=== PATIENT | female | born 1970 | race Caucasian/White ===

== ENCOUNTER 2017-01-02 14:45 | Emergency (ER) | payer OTHER ==
--- NOTE | 2017-01-02 15:37 | ERPHSYRPT ---
<PAM CHEATHAM J - Last Filed: 01/02/17 15:43> - History of Present Illness Time Seen by Provider: 01/02/17 15:40 Patient Subjective Stated Complaint: pt has redness to face and arms since yesterday with itching, unsure of cause,she has new soap, detergent. took benadryl and calamine lotion Triage Nursing Assessment: pt alert,resp easy, has reddnesn to face and arms. no sob. Prior Chest Pain/Cardiac Workup: no prior chest pain Nitro Today/Relief: 0.4 mg x 1, provided by EMS, mild relief Aspirin Treatment Today: 81 mg x 2, provided by EMS Allergies/Adverse Reactions: hydromorphone HCl [From Dilaudid] Allergy (Intermediate, Verified 01/02/17 15:02 ) ketorolac tromethamine [From Toradol] Allergy (Intermediate, Verified 01/02/17 15:02) naproxen Allergy (Intermediate, Verified 01/02/17 15:02) nitroglycerin [From Nitro-Bid] Allergy (Intermediate, Verified 01/02/17 15:02) promethazine HCl [From Phenergan] Allergy (Intermediate, Verified 01/02/17 15:02 ) propoxyphene napsylate [From Darvocet-N 100] Allergy (Intermediate, Verified 15:02) tramadol HCl [From Ultram] Allergy (Intermediate, Verified 01/02/17 15:02) cefaclor [From Ceclor] Allergy (Mild, Verified 01/02/17 15:02) ampicillin [Ampicillin] Allergy (Unknown, Verified 01/02/17 15:02) Cephalosporins Allergy (Unknown, Verified 01/02/17 15:02) ketorolac Allergy (Unknown, Verified 01/02/17 15:02) levofloxacin [Levofloxacin] Allergy (Unknown, Verified 01/02/17 15:02) morphine Allergy (Unknown, Verified 01/02/17 15:02) niacin [Niacin] Allergy (Unknown, Verified 01/02/17 15:02) Opioids - Morphine Analogues [Opioids-Morphine & Related] Allergy (Unknown, Verified 01/02/17 15:02) Opioids-Meperidine and Related [Opioids-Meperidine & Related] Allergy (Unknown, Verified 01/02/17 15:02) Penicillins Allergy (Unknown, Verified 01/02/17 15:02) propoxyphene Allergy (Unknown, Verified 01/02/17 15:02) simvastatin Allergy (Unknown, Verified 01/02/17 15:02) tramadol Allergy (Unknown, Verified 01/02/17 15:02) bees Allergy (Severe, Uncoded 01/02/17 15:02) Home Medications: Albuterol Sulfate [Albuterol Sulfate Hfa] 2 puff IH TID 09/06/14 [History] Albuterol/Ipratropium 3ml Neb* [DUONEB 0.5-3 MG/3 ml Neb] 3 ml IH Q4HPRN PRN 09/06/14 [History] Aripiprazole [Abilify] 5 mg PO DAILY 09/06/14 [History] Aspirin 81 mg PO DAILY 09/06/14 [History] Calcium Carbonate/Vitamin D3 [Calcium 600 + Vit D Tablet] 1 each PO DAILY [History] Metoprolol Tartrate 25 mg [Lopressor 25MG Tab] 25 mg DAILY 01/02/17 [ History] Hx Tetanus, Diphtheria Vaccination/Date Given: No Hx Influenza Vaccination/Date Given: No Hx Pneumococcal Vaccination/Date Given: No - Past Medical History Pertinent Past Medical History: Yes Neurological History: Migraines ENT History: No Pertinent History Cardiac History: Congestive Heart Failure, Hypertension, Myocardial Infarction ( [place]) Respiratory History: Asthma Endocrine Medical History: Hypothyroidism Musculoskeletal History: Osteoarthritis GI Medical History: GERD History: No Pertinent History Psycho-Social History: Anxiety, Bipolar, Depression Female Reproductive Disorders: Endometriosis, Other Other Medical History: PT. HAS HX [place] X 3 AND NOW IS IN CHF. PT. REPORTS SHE HAS LOST > 194 LBS AND NOW IS NOT DIABETIC. - Past Surgical History Past Surgical History: Yes Neuro Surgical History: No Pertinent History Cardiac: Cardiac Catheterization Respiratory: No Pertinent History Gastrointestinal: Cholecystectomy, Exploratory Laparoscopy, Hernia Repair Genitourinary: No Pertinent History Musculoskeletal: No Pertinent History Female Surgical History: Section, Hysterectomy Other Surgical History: hernia repair x 2 , x2 - Social History Smoking Status: Never smoker Exposure to second hand smoke: Yes Drug Use: none Patient Lives Alone: No - Female History Hx Last Menstrual Period: hyster Hx Now: No - Nursing Vital Signs Temperature: 98.3 F Temperature Source: Oral Pulse Rate: 59 Respiratory Rate: 18 Pain Intensity: 0 - Physical Exam SpO2: 98 Ordered Tests: Medication Summary Discontinued Medications Generic Name Dose Route Start Last Admin Trade Name Kay PRN Reason Stop Dose Admin Diphenhydramine HCl 50 mg 01/02/17 15:44 01/02/17 15:49 Benadryl 50 Mg/Ml IM 01/02/17 15:45 50 mg STAT ONE Administration Diphenhydramine HCl Confirm 01/02/17 15:48 Benadryl 50 Mg/Ml Administered 01/02/17 15:49 Dose 50 mg .ROUTE .STK-MED ONE Methylprednisolone Sodium Succinate 125 mg 01/02/17 15:44 01/02/17 15:49 Solu-Medrol 125 Mg IM 01/02/17 15:45 125 mg STAT ONE Administration Methylprednisolone Sodium Succinate Confirm 01/02/17 15:48 Solu-Medrol 125 Mg Administered 01/02/17 15:49 Dose 125 mg .ROUTE .STK-MED ONE - Progress Progress Note: 01/02/17 15:43 This note was made in incorrect chart. - Departure Clinical Impression: Contact dermatitis Qualifiers: Contact dermatitis type: unspecified Contact dermatitis trigger: detergents Qualified Code(s): L24.0 - Irritant contact dermatitis due to detergents Condition: Fair Referrals: SHAWNEE RODGERS [Primary Care Provider] - Additional Instructions: so we don't need to previously away until will need to wean drip or anybody. He states the pain. When vomiting. The lowReturn home. Benadryl 25-50 mg orally every 6 hours as needed for 2-3 days. Tapering dose of prednisone as directed. Stop exposure to detergent and or dryer sheets. Follow-up with your family Dr. symptoms are worse, no better in 48 hours, or persist longer than 72 hours. Return for acute distress or for severe symptoms. <MIRTHA FARLEY - Last Filed: 01/02/17 16:11> - History of Present Illness Historian: patient Physician History: This is a 46-year-old white female with history of hypothyroidism, asthma, congestive heart failure, high blood pressure, myocardial infarction, osteoarthritis, congestive heart failure. She arrives with complaint of a erythematous. Rash to her face and bilateral forearms symptoms since yesterday. Patient feels like she is exposed to either new detergent or dryer sheets. She is not having shortness of breath no chest pain. She states she's been taking Benadryl 25 mg orally every 4 hours. Last Benadryl was taken at 11:00 today. Past medical history includes hypothyroidism, asthma, congestive heart failure, high blood pressure, myocardial infarction, osteoarthritis, Past surgical history includes cardiac catheter, cholecystectomy, exploratory laparotomy, hernia repair, , hysterectomy, Social history patient denies tobacco alcohol or illicit drug use Timing/Duration: yesterday Activities at Onset: none Quality: other (itching) Location: other (no chest pain) Severity of Pain-Max: none Severity of Pain-Current: none Associated Symptoms: rash (pleuritic rash to face and bilateral forearms), No nausea, No vomiting, No palpitations, No heartburn, No abdominal pain, No shortness of breath, No cough, No hurts to breathe, No diaphoresis, No chills, No fever, No fatigue, No weakness, No swelling/lump in chest, No syncope Prior Chest Pain/Cardiac Workup: cardiac cath, heart attack Nitro Today/Relief: no nitro taken today Aspirin Treatment Today: 81 mg x 1 - Review of Systems Constitutional: No Fever, No Chills Eyes: No Symptoms Ears, Nose, & Throat: No Symptoms Respiratory: No Cough, No Dyspnea Cardiac: No Chest Pain, No Edema, No Syncope Abdominal/Gastrointestinal: No Abdominal Pain, No Nausea, No Vomiting, No Diarrhea Genitourinary Symptoms: No Dysuria Musculoskeletal: No Back Pain, No Neck Pain Skin: Rash (puritic rash erythematousanterior face and forearms) Neurological: No Dizziness, No Focal Weakness, No Sensory Changes Psychological: No Symptoms Endocrine: No Symptoms All Other Systems: Reviewed and Negative - Past Medical History Neurological History: Migraines Cardiac History: Congestive Heart Failure, Hypertension, Myocardial Infarction ( [place]) Respiratory History: Asthma Endocrine Medical History: Hypothyroidism Musculoskeletal History: Osteoarthritis GI Medical History: GERD Psycho-Social History: Anxiety, Bipolar, Depression Female Reproductive Disorders: Endometriosis - Physical Exam General Appearance: other (well-developed obese white female in no apparent distress) Eye Exam: PERRL/EOMI, eyes nml inspection Ears, Nose, Throat Exam: normal ENT inspection, moist mucous membranes Neck Exam: normal inspection, non-tender, supple, full range of motion Respiratory Exam: normal breath sounds, lungs clear, No respiratory distress Cardiovascular Exam: regular rate/rhythm, normal heart sounds Gastrointestinal/Abdomen Exam: soft, No tenderness, No mass Back Exam: normal inspection, No CVA tenderness, No vertebral tenderness Extremity Exam: normal inspection, normal range of motion Neurologic Exam: alert, oriented x 3, cooperative, normal mood/affect, sensation nml, No motor deficits Skin Exam: other (skin on face is mild is erythematous, not hot slight erythematous areas on bilateral forearms scattered) SpO2 Interpretation: normal (98%) - Course Nursing assessment & vital signs reviewed: Yes - Progress Progress: improved Air Movement: fair Progress Note: 01/02/17 15:53 This is a 46-year-old white female with history of hypothyroidism, asthma, congestive heart failure, high blood pressure, myocardial infarction, osteoarthritis, myocardial infarction She complains of an erythematous pruritic rash on her face and arms symptoms since yesterday she states that she believes that she was exposed to a new detergent and/or dryer sheets she has been taking Benadryl 25 mg orally every 6 hours without relief. Patient does not appear to be in acute distress or lungs are clear vitals are stable. Will go ahead and give patient Solu-Medrol 125 mg IM Benadryl 50 mg IM discharge patient with Benadryl 25-50 mg orally every 6 hours tapering dose of prednisone. Patient is to discontinue her new detergent and/or dryer sheet. She is to recheck return for acute distress or for severe symptoms she is follow -up with her family doctor symptoms are no better in 24-48 hours worse or persist longer than 72 hours. . - Departure Time of Disposition: 15:55 Departure Disposition: Home Critical Care Time: No
[2017-01-02] MEDS ORDERED: solu-MEDROL 125 MG IM ONE (15:44)
[2017-01-02] MEDS ORDERED: BENADRYL 50 MG/ML IM ONE (15:44)
[2017-01-02] MEDS ORDERED: BENADRYL 50 MG/ML ONE (15:48)
[2017-01-02] MEDS ORDERED: solu-MEDROL 125 MG ONE (15:48)
[2017-01-02 16:16] VITALS: BP 102/35; PULSE 57; O2SAT 97
== END 2017-01-02 16:16 | disposition home or self-care (01) ==
LOC: ED 14:45
DX: L24.0 Irritant contact dermatitis due to detergents (principal); I50.9 Heart failure, unspecified; I10 Essential (primary) hypertension; E03.9 Hypothyroidism, unspecified
CPT/HCPCS: 96372; 96376; 99283; 99284; J1200; J2930

== ENCOUNTER 2017-01-31 11:59 | Emergency (ER) | payer OTHER ==
[2017-01-31] MEDS ORDERED: TYLENOL 325 MG PO ONE (12:17)
[2017-01-31] MEDS ORDERED: PROVENTIL 2.5 MG/3 ML NEB IH ONE ×2 (12:17→12:39)
[2017-01-31] MEDS ORDERED: TYLENOL 325 MG ONE (12:20)
--- NOTE | 2017-01-31 12:27 | ERPHSYRPT ---
- History of Present Illness Time Seen by Provider: 01/31/17 12:10 Source: patient Patient Subjective Stated Complaint: cough and chest congestion for one week. seen by family md and was given mucinex. states is not getting any better. Triage Nursing Assessment: ambulated to room per self. skin w/d, color normal, resp nonlabored. occasional dry cough noted. lung sounds clear. Physician History: CC: cough Hx: 46 y/o patient with hx of heart disease. She is on ventolin inhalers. She has chest cold, cough, congestion for a few days. No fever or chills. She tried to get mucinex at the store but could not afford it. She is taking a cough syrup. Allergies/Adverse Reactions: hydromorphone HCl [From Dilaudid] Allergy (Intermediate, Verified 01/31/17 12:49 ) ketorolac tromethamine [From Toradol] Allergy (Intermediate, Verified 01/31/17 12:49) naproxen Allergy (Intermediate, Verified 01/31/17 12:49) nitroglycerin [From Nitro-Bid] Allergy (Intermediate, Verified 01/31/17 12:49) promethazine HCl [From Phenergan] Allergy (Intermediate, Verified 01/31/17 12:49 ) propoxyphene napsylate [From Darvocet-N 100] Allergy (Intermediate, Verified 12:49) tramadol HCl [From Ultram] Allergy (Intermediate, Verified 01/31/17 12:49) cefaclor [From Ceclor] Allergy (Mild, Verified 01/31/17 12:49) ampicillin [Ampicillin] Allergy (Unknown, Verified 01/31/17 12:49) Cephalosporins Allergy (Unknown, Verified 01/31/17 12:49) ketorolac Allergy (Unknown, Verified 01/31/17 12:49) levofloxacin [Levofloxacin] Allergy (Unknown, Verified 01/31/17 12:49) morphine Allergy (Unknown, Verified 01/31/17 12:49) niacin [Niacin] Allergy (Unknown, Verified 01/31/17 12:49) Opioids - Morphine Analogues [Opioids-Morphine & Related] Allergy (Unknown, Verified 01/31/17 12:49) Opioids-Meperidine and Related [Opioids-Meperidine & Related] Allergy (Unknown, Verified 01/31/17 12:49) Penicillins Allergy (Unknown, Verified 01/31/17 12:49) propoxyphene Allergy (Unknown, Verified 01/31/17 12:49) simvastatin Allergy (Unknown, Verified 01/31/17 12:49) tramadol Allergy (Unknown, Verified 01/31/17 12:49) bees Allergy (Severe, Uncoded 01/02/17 15:02) Home Medications: Albuterol Sulfate [Albuterol Sulfate Hfa] 2 puff IH TID 09/06/14 [History] Albuterol/Ipratropium 3ml Neb* [DUONEB 0.5-3 MG/3 ml Neb] 3 ml IH Q4HPRN PRN 09/06/14 [History] Aripiprazole [Abilify] 5 mg PO DAILY 09/06/14 [History] Aspirin 81 mg PO DAILY 09/06/14 [History] Calcium Carbonate/Vitamin D3 [Calcium 600 + Vit D Tablet] 1 each PO DAILY [History] Metoprolol Tartrate 25 mg [Lopressor 25MG Tab] 25 mg DAILY 01/02/17 [ History] Hx Tetanus, Diphtheria Vaccination/Date Given: No Hx Influenza Vaccination/Date Given: No Hx Pneumococcal Vaccination/Date Given: Yes - Review of Systems Constitutional: No Fever Respiratory: Cough, No Dyspnea Cardiac: Chest Pain (with coughing) Abdominal/Gastrointestinal: No Vomiting, No Diarrhea Skin: No Rash Neurological: No Headache - Past Medical History Pertinent Past Medical History: Yes Neurological History: Migraines ENT History: No Pertinent History Cardiac History: Congestive Heart Failure, Hypertension, Myocardial Infarction ( [place]) Respiratory History: Asthma Endocrine Medical History: Hypothyroidism Musculoskeletal History: Osteoarthritis GI Medical History: GERD History: No Pertinent History Psycho-Social History: Anxiety, Bipolar, Depression Female Reproductive Disorders: Endometriosis Other Medical History: PT. HAS HX [place] X 3 AND NOW IS IN CHF. PT. REPORTS SHE HAS LOST > 194 LBS AND NOW IS NOT DIABETIC. - Past Surgical History Past Surgical History: Yes Neuro Surgical History: No Pertinent History Cardiac: Cardiac Catheterization Respiratory: No Pertinent History Gastrointestinal: Cholecystectomy, Exploratory Laparoscopy, Hernia Repair Genitourinary: No Pertinent History Musculoskeletal: No Pertinent History Female Surgical History: Section, Hysterectomy Other Surgical History: hernia repair x 2 , x2 - Social History Smoking Status: Former smoker Exposure to second hand smoke: Yes Drug Use: none Patient Lives Alone: No - Female History Hx Now: No - Nursing Vital Signs Nursing Vital Signs: Initial Vital Signs Temperature 97.8 F Temperature Source Oral Pulse Rate 76 Respiratory Rate 18 Blood Pressure [Right Arm] 156/89 Pain Intensity 10 - Physical Exam General Appearance: alert Eye Exam: PERRL/EOMI Ears, Nose, Throat Exam: moist mucous membranes Neck Exam: normal inspection, non-tender, supple Respiratory Exam: normal breath sounds, lungs clear Cardiovascular Exam: regular rate/rhythm Gastrointestinal/Abdomen Exam: soft, No tenderness, No distention Extremity Exam: normal inspection, normal range of motion Neurologic Exam: alert, oriented x 3, cooperative Skin Exam: warm, dry, No rash SpO2 Interpretation: normal SpO2: 96 Oxygen Delivery: Room Air - Course Nursing assessment & vital signs reviewed: Yes - Radiology Exams cxr X-ray Interpretation: Discussed w/ radiologist, Negative Ordered Tests: Active Orders 24 hr Category Date Time Status Pulse Oximetry (ED) STAT Care 01/31/17 12:17 Active CHEST 2 VIEWS (PA AND LAT) Stat Exams 01/31/17 12:17 Completed Respiratory Nebulizer STAT RT 01/31/17 12:17 Completed Medication Summary Discontinued Medications Generic Name Dose Route Start Last Admin Trade Name Kay PRN Reason Stop Dose Admin Acetaminophen 650 mg 01/31/17 12:17 01/31/17 12:22 Tylenol 325 Mg PO 01/31/17 12:18 650 mg STAT ONE Administration Acetaminophen Confirm 01/31/17 12:20 Tylenol 325 Mg Administered 01/31/17 12:21 Dose 650 mg .ROUTE .STK-MED ONE Albuterol Sulfate 2.5 mg 01/31/17 12:17 01/31/17 12:41 Proventil 2.5 Mg/3 Ml Neb IH 01/31/17 12:18 2.5 mg STAT ONE Administration Albuterol Sulfate Confirm 01/31/17 12:39 Proventil 2.5 Mg/3 Ml Neb Administered 01/31/17 12:40 Dose 2.5 mg IH .STK-MED ONE - Progress Progress Note: 01/31/17 12:50 Lungs clear before and after neb. She has cough med and nebs at home. Symptoms instr givne. Counseled pt/family regarding: diagnosis, need for follow-up, rad results - Departure Time of Disposition: 12:50 Departure Disposition: Home Clinical Impression: Upper respiratory infection Condition: Stable Critical Care Time: No Referrals: SHAWNEE JUSTIN [Primary Care Provider] - Instructions: Cough -- Adult, Viral Upper Respiratory Infection -- Adult Additional Instructions: UPPER RESPIRATORY INFECTIONS 1. The signs and symptoms of a cold may last up to 10 days. These illnesses are due to viruses which are not treatable with antibiotics. 2. The following suggestions can aid in recovery and to minimize symptoms: A. Increase fluid intake. B. Acetaminophen or Ibuprofen as directed. C. Avoid smoking environments as this will increase the risk of developing pneumonia. D. For children, may use a cool mist vaporizer in the child's room. 3. Contact your Family Physician if you note: A. Persisten fever >103 for more than 3 days B. Breathing difficulty C. Productive cough of yellow/green sputum D. Illness greater than 7 days E. Persistent vomiting F. Stiff neck Use your cough medication as already directed. Use your nebs as already directed. Follow up with Dr Justin next week if not better.
--- NOTE | 2017-01-31 12:42 | XRAY ---
Indication: Cough and chest pain. Comparison: July 27, 2015. PA/lateral chest again demonstrates normal heart, lungs, and bony thorax.
[2017-01-31 12:45] VITALS: PULSE 76
[2017-01-31 13:01] VITALS: BP 146/77; O2SAT 93
== END 2017-01-31 13:02 | disposition home or self-care (01) ==
LOC: ED 11:59
DX: J06.9 Acute upper respiratory infection, unspecified (principal); R05 Cough; Z79.899 Other long term (current) drug therapy; I51.9 Heart disease, unspecified
CPT/HCPCS: 71020; 94640; 99283; A9270-GY

== ENCOUNTER 2018-05-29 09:39 | Day surgery (SDC) | payer OTHER ==
[2018-05-29] MEDS ORDERED: DIPRIVAN 200 MG/20 ML IV ONE (09:40)
[2018-05-29] MEDS ORDERED: Lactated Ringers 1,000 ML IV ONE (09:57)
[2018-05-29] MEDS ORDERED: MAXITROL OP SCH (10:00)
[2018-05-29] MEDS ORDERED: TETRACAINE 0.5% STERI-UNIT SOL OP ONE ×2 (10:00)
[2018-05-29] MEDS ORDERED: [UNRECOGNIZED DRUG - OTHER] OP ONE ×2 (10:00)
[2018-05-29] MEDS ORDERED: Lactated Ringers 1,000 ML IV SCH (10:00)
[2018-05-29] MEDS ORDERED: ACETAZOLAMIDE 250 MG TABLET PO ONE (11:00)
[2018-05-29] MEDS ORDERED: Zofran 4 MG/2 ML VIAL IV PRN (11:00)
[2018-05-29] MEDS ORDERED: BETADINE 5% OPHTHALMIC 30 ML OP ONE (12:00)
[2018-05-29] MEDS ORDERED: Epinephrine Preservative Free 1 MG/ML INTRAOP ONE (12:00)
[2018-05-29] MEDS ORDERED: LIDOCAINE HCL 1% AMPUL 5 ML IJ ONE (12:00)
--- NOTE | 2018-05-29 13:18 | OP ---
DATE/TIME OF OPERATION: 05/29/2018 1230 TIME DICTATED: 1258 PREOPERATIVE DIAGNOSIS: Senile cataract of right eye. POSTOPERATIVE DIAGNOSIS: Senile cataract of right eye. SURGEON: Ori Romero MD CARDIOVASCULAR SURGEON: None. OPERATION: Cataract extraction of right eye with an intraocular lens implant. STANDARD __X___ COMPLEX ANESTHESIA: MAC. ___X___ Monitored anesthesia care in combination with topical and intra-cameral anesthesia (because of the established specific risk of reflux, arrhythmias, or an anxiety attack associated with ocular manipulation as well as difficulty of the binder lockstitch to manage such potentially catastrophic events while simultaneously attempting to complete the surgical procedure, it was deemed necessary for the patient's safety to have an anesthesiologist or a nurse manager commercial sales present during the procedure whenever possible. The anesthesiologist or the nurse manager commercial sales was utilized to monitor and regulate the intravenous sedation of the patient, so the patient was cooperative, relaxed, and comfortable). Topical anesthesia using Tetracaine eye drops together with intra cameral anesthesia using Lidocaine 1% MPF. The nurse was utilized to monitor the patient. ANESTHESIA PROVIDER: Gal Maher CRNA. COMPLICATIONS: None. BLOOD LOSS: None. INDICATIONS: The patient is undergoing cataract surgery in the hopes of eliminating the visual complaints and difficulty. PROCEDURE: After arriving at the facility's outpatient surgery area, an IV was started; the patient was given 5 mg of p.o. Versed. (If an anesthesia provider was not monitoring the patient) The patient was then given topical anesthetic Tetracaine eye drops. A cotton pellet was soaked into a solution of a combination of Zymaxid 0.5%, Darci-Synephrine 2.5% and Ocufen (other drops might have been substituted referenced in the patient's record). The pellet was inserted by the RN into the lower conjunctival cul-de-sac with a sterile forceps and left for 20 minutes. The pellet was then removed by the RN with a sterile forceps before taking the patient to the operating room. The preoperative area nurse identified the patient and marked the correct eye to be operated on. I identified the correct eye to be operated on and marked it appropriately in the outpatient surgery area. The patient was then taken into the operating room. Tetracaine eye drops were installed again in the correct eye. The eyelids and the lashes and the lid margins were scrubbed with Betadine solution. One drop of the diluted Betadine solution was placed in the conjunctival cul-de-sac for 45 seconds and then was irrigated. A drop of Tetracaine Gel was placed in the conjunctival cul-de-sac. The patient's forehead was taped to secure it during the procedure. The patient was monitored. The patient was then draped in the usual way for this procedure. An eye speculum was used to separate the eyelids. The eye was then fixated and a temporal 2.5 mm incision was made in the clear cornea temporally at the limbus. Through the incision, 0.25 cc of 1% non-preserved lidocaine was injected into the anterior chamber for intracameral anesthesia. The anterior chamber was then filled with viscoelastic. The pupil was small. I felt that it would be safer to mechanically dilate the pupil. A Malyugin ring was used at this point which dilated the pupil. That was removed at the end of the procedure prior to aspiration of the viscoelastic from the anterior chamber and posterior to the intraocular lens implant. The cataract had a great amount of cortical changes. That rendered seeing the anterior capsule difficult for a safe performance of an anterior capsulotomy. I injected an air bubble into the anterior chamber. I then injected 1 ML of vision blue solution into the anterior chamber. The vision blue solution was irrigated from the anterior chamber after 30 seconds. The anterior capsule was stained which facilitated performing the anterior capsulotomy safely. After that was completed, a cystotome was introduced into the anterior chamber and a round anterior capsulotomy was performed. The capsule was removed by a forceps. Hydrodissection was next carried utilizing a 25-gauge cannula and balanced salt solution to delineate the cortical material from the capsule and the nucleus from the cortical material. The nucleus was rotated freely into the capsular bag with no difficulty. The phaco tip of the [employer] Phacoemulsifier was introduced into the anterior chamber and two grooves were made into the nucleus 90 degrees apart. Using two spatulas resulted into the nucleus being fractured into four quadrants. The phaco tip was then used to remove each quadrant of the nucleus. Viscoelastic was used during this process to protect the corneal endothelium. Once the entire nucleus was removed, the phaco tip then was removed and the irrigation tip was introduced into the eye and the cortex was removed. The posterior capsule was polished. It was noticed that there was a tear into the posterior capsule with few vitreous strands into the pupil plan. An anterior vitrectomy was performed. An 18.50 diopter, [id number], posterior chamber lens implant, was inspected and found to be grossly normal. The implant was inserted into the implant injector cartridge; Viscoelastic again was introduced into the anterior chamber, which filled the capsular bag. The implant injector's cartridge tip was placed at the limbal wound and the posterior chamber implant was released into the capsular bag and rotated appropriately. The implant was found to be into the capsular bag and it was centered. 0.2 ml of Tri-Moxi was introduced via 27 gauge cannula into the vitreous cavity through the ciliary processes. Viscoelastic was aspirated from the anterior chamber and posterior to the intraocular lens implant from the capsular bag using the irrigating tip. The anterior chamber was irrigated and filled with 5 cc antibiotic solution (500 cc of BSS plus 2 ml of Fortaz 100 mg/ml) ( if patient was not allergic to the medication). The lips of the corneal incision were hydrated using BSS solution. The anterior chamber was checked and found to be water tight. __X____ One drop each of antibiotic, steroid and NSAID drops (refer to chart for drops used) were placed in the conjunctival cul-de-sac of the operated eye. Patient tolerated the procedure quite well and left the operating room in satisfactory condition. DISCHARGE SUMMARY: The patient was released in stable condition. The patient and those with the patient were given an instruction sheet as of how to care for the eye after surgery as well as counseling on any abnormal laboratory studies by the postoperative RN. The patient was also given an appointment card for follow-up in the office and is to call immediately for any difficulties including but not limited to pain in the eye, decreased vision, discharge from the eye, headache and or fever. DISCHARGE DIAGNOSIS: Pseudophakia of right eye.
[2018-05-29 13:23] VITALS: O2SAT 97
[2018-05-29 14:16] VITALS: BP 141/89; PULSE 69
== END 2018-05-29 13:57 | disposition home or self-care (01) ==
LOC: SDC 09:39
PROVIDERS: ATTEND Ophthalmology
DX: H25.9 Unspecified age-related cataract (principal); I50.9 Heart failure, unspecified; J44.9 Chronic obstructive pulmonary disease, unspecified; F41.9 Anxiety disorder, unspecified; I10 Essential (primary) hypertension; F31.9 Bipolar disorder, unspecified; Z79.899 Other long term (current) drug therapy
CPT/HCPCS: 66984; 67005; C1780; J0171; J2704; A9270-GY

== ENCOUNTER 2019-06-27 11:46 | Emergency (ER) | payer MEDICAID, OTHER | END 2019-06-27 16:00 | disposition home or self-care (01) | LOC: ED 11:46 ==

== ENCOUNTER 2019-07-20 11:30 | Emergency (ER) | payer MEDICAID ==
--- NOTE | 2019-07-20 12:05 | ERPHSYRPT ---
- History of Present Illness Time Seen by Provider: 07/20/19 12:00 Source: patient Exam Limitations: no limitations Patient Subjective Stated Complaint: pt reports she is concerned for hep a exposure due to the outbreak at the [facility]. pt reports she ate there monday, reports history of liver disease so she is concerned. Triage Nursing Assessment: pt is aox3, pupils perrl, afebrile, resps easy and non labored, radial pulses strong and equal, cap refill < 3 seconds, abd soft non tender, bowel sounds present normoactive x 4, pt skin pink warm dry. Physician History: pt reports she is concerned for hep a exposure due to the outbreak of Hepatitis A at the [facility]. pt reports she ate there monday, reports history of liver disease so she is concerned. Associated Symptoms: denies symptoms Allergies/Adverse Reactions: meperidine Allergy (Severe, Verified 07/20/19 11:44) hydromorphone HCl [From Dilaudid] Allergy (Intermediate, Verified 07/20/19 11:44 ) ketorolac tromethamine [From Toradol] Allergy (Intermediate, Verified 07/20/19 11:44) naproxen Allergy (Intermediate, Verified 07/20/19 11:44) nitroglycerin [From Nitro-Bid] Allergy (Intermediate, Verified 07/20/19 11:44) promethazine HCl [From Phenergan] Allergy (Intermediate, Verified 07/20/19 11:44 ) propoxyphene napsylate [From Darvocet-N 100] Allergy (Intermediate, Verified 05/31 11:44) tramadol HCl [From Ultram] Allergy (Intermediate, Verified 07/20/19 11:44) cefaclor [From Ceclor] Allergy (Mild, Verified 07/20/19 11:44) ampicillin [Ampicillin] Allergy (Unknown, Verified 07/20/19 11:44) Cephalosporins Allergy (Unknown, Verified 07/20/19 11:44) ketorolac Allergy (Unknown, Verified 07/20/19 11:44) levofloxacin [Levofloxacin] Allergy (Unknown, Verified 07/20/19 11:44) morphine Allergy (Unknown, Verified 07/20/19 11:44) niacin [Niacin] Allergy (Unknown, Verified 07/20/19 11:44) Opioids - Morphine Analogues [Opioids-Morphine & Related] Allergy (Unknown, Verified 07/20/19 11:44) Opioids-Meperidine and Related [Opioids-Meperidine & Related] Allergy (Unknown, Verified 07/20/19 11:44) Penicillins Allergy (Unknown, Verified 07/20/19 11:44) propoxyphene Allergy (Unknown, Verified 07/20/19 11:44) simvastatin Allergy (Unknown, Verified 07/20/19 11:44) tramadol Allergy (Unknown, Verified 07/20/19 11:44) Sulfa (Sulfonamide Antibiotics) Adverse Reaction (Intermediate, Verified 11:44) bees Allergy (Severe, Uncoded 07/20/19 11:44) Home Medications: Aripiprazole [Abilify] 10 mg PO DAILY 09/06/14 [History] Aspirin 81 mg PO DAILY 09/06/14 [History] Metoprolol Tartrate 25 mg [Lopressor 25MG Tab] 25 mg DAILY 01/02/17 [ History] Albuterol Sulfate [Ventolin] 5 mg IH QIDPRN PRN 02/26/18 [History] Nitroglycerin [Nitrostat] 0.4 mg SL Q5MIN PRN MR X 3 PRN 02/26/18 [History] Paroxetine HCl 20 mg [Paxil 20 MG] 20 mg PO DAILY 05/23/18 [History] Hx Tetanus, Diphtheria Vaccination/Date Given: Yes Hx Influenza Vaccination/Date Given: Yes Hx Pneumococcal Vaccination/Date Given: No Immunizations Up to Date: Yes - Review of Systems Constitutional: No Fever, No Chills Eyes: No Symptoms Ears, Nose, & Throat: No Symptoms Respiratory: No Cough, No Dyspnea Cardiac: No Chest Pain, No Edema, No Syncope Abdominal/Gastrointestinal: No Abdominal Pain, No Nausea, No Vomiting, No Diarrhea Genitourinary Symptoms: No Dysuria Musculoskeletal: No Back Pain, No Neck Pain Skin: No Rash Neurological: No Dizziness, No Focal Weakness, No Sensory Changes Psychological: No Symptoms Endocrine: No Symptoms All Other Systems: Reviewed and Negative - Past Medical History Pertinent Past Medical History: Yes Neurological History: Migraines ENT History: Cataracts Cardiac History: Congestive Heart Failure, Hypertension, Myocardial Infarction ( [place]) Respiratory History: Asthma Endocrine Medical History: Hypoglycemia, Hypothyroidism, Other Musculoskeletal History: Osteoarthritis GI Medical History: GERD, Gallbladder Disease History: Other Psycho-Social History: Anxiety, Bipolar, Depression Female Reproductive Disorders: Endometriosis, Other Other Medical History: PT. HAS HX [place] AND HX CHF, heart murmur since child, said has hole in heart since , had dvt after surgery, nacrolepsy. pre uterine and cervical cancer. Pt had a hysterectomy - Past Surgical History Past Surgical History: Yes Neuro Surgical History: No Pertinent History Cardiac: Cardiac Catheterization Respiratory: No Pertinent History Gastrointestinal: Cholecystectomy, Exploratory Laparoscopy, Hernia Repair Genitourinary: No Pertinent History Musculoskeletal: No Pertinent History Female Surgical History: Section, Hysterectomy Other Surgical History: hernia repair x 2 , x2 - Social History Smoking Status: Never smoker Exposure to second hand smoke: No Drug Use: none Patient Lives Alone: No - Female History Hx Last Menstrual Period: 1998 Hx Now: No - Nursing Vital Signs Nursing Vital Signs: Initial Vital Signs Respiratory Rate 20 07/20/19 11:39 - Physical Exam General Appearance: no apparent distress, alert Eye Exam: PERRL/EOMI, eyes nml inspection Ears, Nose, Throat Exam: normal ENT inspection, TMs normal, pharynx normal, moist mucous membranes Neck Exam: normal inspection, non-tender, supple, full range of motion Respiratory Exam: normal breath sounds, lungs clear, No respiratory distress Cardiovascular Exam: regular rate/rhythm, normal heart sounds, normal peripheral pulses Gastrointestinal/Abdomen Exam: soft, normal bowel sounds, No tenderness, No mass Back Exam: normal inspection, normal range of motion, No CVA tenderness, No vertebral tenderness Extremity Exam: normal inspection, normal range of motion, pelvis stable Neurologic Exam: alert, oriented x 3, cooperative, normal mood/affect, nml cerebellar function, nml station & gait, sensation nml, No motor deficits Skin Exam: normal color, warm, dry, No rash Lymphatic Exam: No adenopathy - Course Nursing assessment & vital signs reviewed: Yes Ordered Tests: Active Orders 24 hr Category Date Time Status CBC W DIFF Stat Lab 07/20/19 11:41 Ordered CMP Stat Lab 07/20/19 11:41 Ordered - Progress Progress: unchanged Counseled pt/family regarding: diagnosis - Departure Departure Disposition: Home Clinical Impression: Exposure to hepatitis A Condition: Stable Critical Care Time: No Referrals: SHAWNEE RODGERS [Primary Care Provider] - Additional Instructions: Discharge/Care Plan ZACKERY RING was seen on 07/20/19 in the Emergency Room. The patient was counseled regarding Diagnosis,Lab results, Imaging studies, need for follow up and when to return to the Emergency Room. Prescriptions given: Discharge Note I have spoken with the patient and/or caregivers. I have explained the patient' s condition, diagnosis and treatment plan based on the information available to me at this time. I have answered the patient's and/or caregiver's questions and addressed any concerns. The patient and/or caregivers have as good understanding of the patient's diagnosis, condition and treatment plan as can be expected at this point. The vital signs have been stable. The patient's condition is stable and appropriate for discharge from the emergency department. The patient will pursue further outpatient evaluation with the primary care physician or other designated or consulting physician as outlined in the discharge instructions. The patient and/or caregivers are agreeable to this plan of care and follow-up instructions have been explained in detail. The patient and/or caregivers have received these instruction. The patient/and or caregivers are aware that any significant change in condition or worsening of symptoms should prompt an immediate return to this or the closest emergency department or call 911.
[2019-07-20 12:18] LABS: BASOPHIL % 0.7 % (0.0-0.4); Basophil (Absolute #) 0.05 (0-0.4); Eosinophil (Absolute #) 0.14 (0-0.5); Granulocyte Absolute (ANC) 3.96 (1.4-6.9); Granulocytes % 57.9 % (36.0-66.0); Hematocrit 39.6 % (35-47); Hemoglobin 12.9 gm/dl (12.0-16.0); Lymphocyte (Absolute #) 2.07 (1.0-4.6); Lymphocytes % 30.3 % (24.0-44.0); Mean Cell Volume 94.1 fl (78-100); Mean Corpuscular Hemoglobin 30.6 pg (26-32); Mean Corpuscular Hgb Concent. 32.6 g/dl (32-36); Mean Platelet Volume 10.7 fl (6-9.5); Monocyte (Absolute #) 0.62 (0.0-1.3); Monocytes % 9.1 % (0.0-12.0); Platelet Count 247 K/mm3 (150-450); Red Blood Count 4.21 M/mm3 (4.1-5.4); Red Cell Distribution Width 12.8 % (11.5-14.0); White Blood Count 6.8 K/mm3 (4.0-10.5)
[2019-07-20 12:30] LABS: ALBUMIN 4.1 g/dL (3.5-5.0); ALKALINE PHOSPHATASE 102 U/L (38-126); BLOOD UREA NITROGEN 14 mg/dL (7-17); CHLORIDE 107 mmol/L (98-107); Calcium 9.4 mg/dL (8.4-10.2); Carbon Dioxide 23 mmol/L (22-30); Creatinine 1 0.62 mg/dL (0.52-1.04); Glucose 91 mg/dL (74-106); Potassium 4.1 mmol/L (3.5-5.1); SGOT/AST 26 U/L (14-36); SGPT/ALT 28 U/L (0-35); SODIUM 139 mmol/L (137-145); Total Protein 7.5 g/dL (6.3-8.2)
[2019-07-20 12:42] VITALS: BP 123/79; PULSE 74; O2SAT 99
[2019-07-22 06:43] LABS: HEPATITIS A IGM Non Reactive (Non Reactive); HEPATITIS B VIRUS CORE TOT AB Non Reactive (Non Reactive); HEPATITIS C VIRUS ANTIBODY Non Reactive (Non Reactive); Hepatitis B Surface Ab.Quant. 15.08 mIU/mL (0.00-8.49); Hepatitis B Surface Antigen Non Reactive (Non Reactive)
== END 2019-07-20 12:41 | disposition home or self-care (01) ==
LOC: ED 11:30
DX: Z20.5 Contact with and (suspected) exposure to viral hepatitis (principal)
CPT/HCPCS: 36415; 80053; 80074; 85025; 99283

== ENCOUNTER 2019-10-21 01:04 | Emergency (ER) | payer MEDICAID ==
--- NOTE | 2019-10-21 01:14 | ERPHSYRPT ---
- History of Present Illness Time Seen by Provider: 10/21/19 01:14 Historian: patient Exam Limitations: no limitations Physician History: 49 y/o obese diabetic white female with h/o htn, cadz, bipolar, depression, anxiety. she presents with sudden onset of vomiting X5. occurred one hour ago.. pt has had a hysterectomy and cholecystectomy. pt took zofran and did not help. pt states others ate what she ate and no sx. pt denies diarrhea, denies headache , denies arthralgias and myalgias, denies abd pain. she does not have cough or sore throat. Timing/Duration: today Abdominal Pain Onset Location: other (no pain) Pain Radiation: no radiation Severity of Pain-Max: none Severity of Pain-Current: none Modifying Factors: Improves With: vomiting Associated Symptoms: vomiting Previous symptoms: no prior history Allergies/Adverse Reactions: meperidine Allergy (Severe, Verified 10/21/19 01:20) hydromorphone HCl [From Dilaudid] Allergy (Intermediate, Verified 10/21/19 01:20 ) ketorolac tromethamine [From Toradol] Allergy (Intermediate, Verified 10/21/19 01:20) naproxen Allergy (Intermediate, Verified 10/21/19 01:20) nitroglycerin [From Nitro-Bid] Allergy (Intermediate, Verified 10/21/19 01:20) promethazine HCl [From Phenergan] Allergy (Intermediate, Verified 10/21/19 01:20 ) propoxyphene napsylate [From Darvocet-N 100] Allergy (Intermediate, Verified 08/01 01:20) tramadol HCl [From Ultram] Allergy (Intermediate, Verified 10/21/19 01:20) cefaclor [From Ceclor] Allergy (Mild, Verified 10/21/19 01:20) ampicillin [Ampicillin] Allergy (Unknown, Verified 10/21/19 01:20) Cephalosporins Allergy (Unknown, Verified 10/21/19 01:20) ketorolac Allergy (Unknown, Verified 10/21/19 01:20) levofloxacin [Levofloxacin] Allergy (Unknown, Verified 10/21/19 01:20) morphine Allergy (Unknown, Verified 10/21/19 01:20) niacin [Niacin] Allergy (Unknown, Verified 10/21/19 01:20) Opioids - Morphine Analogues [Opioids-Morphine & Related] Allergy (Unknown, Verified 10/21/19:20) Opioids-Meperidine and Related [Opioids-Meperidine & Related] Allergy (Unknown, Verified 10/21/19:20) Penicillins Allergy (Unknown, Verified 10/21/19:20) propoxyphene Allergy (Unknown, Verified 10/21/19:20) simvastatin Allergy (Unknown, Verified 10/21/19:20) tramadol Allergy (Unknown, Verified 10/21/19:20) Sulfa (Sulfonamide Antibiotics) Adverse Reaction (Intermediate, Verified :) bees Allergy (Severe, Uncoded 10/21/19:) Home Medications: Aripiprazole [Abilify] 10 mg PO DAILY 09/06/14 [History] Aspirin 81 mg PO DAILY 09/06/14 [History] Metoprolol Tartrate 25 mg [Lopressor 25MG Tab] 25 mg DAILY 01/02/17 [ History] Albuterol Sulfate [Ventolin] 5 mg IH QIDPRN PRN 02/26/18 [History] Nitroglycerin [Nitrostat] 0.4 mg SL Q5MIN PRN MR X 3 PRN 02/26/18 [History] Paroxetine HCl 20 mg [Paxil 20 MG] 20 mg PO DAILY 05/23/18 [History] Hx Tetanus, Diphtheria Vaccination/Date Given: Yes Hx Influenza Vaccination/Date Given: Yes Hx Pneumococcal Vaccination/Date Given: No - Review of Systems Constitutional: No Symptoms Eyes: No Symptoms Ears, Nose, & Throat: No Symptoms Respiratory: No Symptoms Cardiac: No Symptoms Abdominal/Gastrointestinal: Nausea, Vomiting Genitourinary Symptoms: No Symptoms Musculoskeletal: No Symptoms Skin: No Symptoms Neurological: No Symptoms Psychological: No Symptoms Endocrine: No Symptoms Hematologic/Lymphatic: No Symptoms Immunological/Allergic: No Symptoms All Other Systems: Reviewed and Negative - Past Medical History Pertinent Past Medical History: Yes Neurological History: No Pertinent History ENT History: Cataracts Cardiac History: Angina, Hypertension, Myocardial Infarction (DE) Respiratory History: Asthma Endocrine Medical History: Diabetes Type II, Hypothyroidism, Liver Disease Musculoskeletal History: Arthritis, Osteoarthritis GI Medical History: GERD, Gallbladder Disease History: Other Psycho-Social History: Anxiety, Bipolar, Depression Female Reproductive Disorders: Endometriosis, Other Other Medical History: PT. HAS HX DE AND HX CHF, heart murmur since child, said has hole in heart since , had dvt after surgery, nacrolepsy. pre uterine and cervical cancer. Pt had a hysterectomy - Past Surgical History Past Surgical History: Yes Neuro Surgical History: No Pertinent History Cardiac: Cardiac Catheterization Respiratory: No Pertinent History Gastrointestinal: Cholecystectomy, Exploratory Laparoscopy, Hernia Repair Genitourinary: No Pertinent History Musculoskeletal: No Pertinent History Female Surgical History: Section, Hysterectomy Other Surgical History: hernia repair x 2 , x2 - Social History Smoking Status: Never smoker Exposure to second hand smoke: No Drug Use: none Patient Lives Alone: No - Nursing Vital Signs Nursing Vital Signs: Initial Vital Signs Temperature 97.8 F 10/21/19 01:10 Pulse Rate 85 10/21/19 01:10 Respiratory Rate 16 10/21/19 01:10 Blood Pressure 124/75 10/21/19 01:10 O2 Sat by Pulse Oximetry 98 10/21/19 01:10 - Physical Exam General Appearance: no apparent distress, alert, anxiety Eye Exam: PERRL/EOMI, eyes nml inspection Ears, Nose, Throat Exam: normal ENT inspection, moist mucous membranes, other ( edentulous) Neck Exam: normal inspection, non-tender, supple, full range of motion Respiratory Exam: normal breath sounds, lungs clear, airway intact, No chest tenderness, No respiratory distress Cardiovascular Exam: regular rate/rhythm, normal heart sounds, normal peripheral pulses Gastrointestinal/Abdomen Exam: soft, normal bowel sounds, No tenderness Pelvic Exam: not done Rectal Exam: not done Back Exam: normal inspection, normal range of motion, CVA tenderness Extremity Exam: normal inspection, normal range of motion, pelvis stable Neurologic Exam: alert, oriented x 3, cooperative, ap processor II-XII nml as tested Skin Exam: normal color, warm, dry Lymphatic Exam: No adenopathy SpO2 Interpretation: normal O2 Delivery: Room Air - Course Nursing assessment & vital signs reviewed: Yes Ordered Tests: Active Orders 24 hr Category Date Time Status IV Insertion STAT Care 10/21/19 01:41 Active AMYLASE Stat Lab 10/21/19 01:51 Completed CBC W DIFF Stat Lab 10/21/19 01:51 Completed CMP Stat Lab 10/21/19 01:51 Completed CULTURE,URINE Stat Lab 10/21/19 03:17 Received LIPASE Stat Lab 10/21/19 01:51 Completed Lactic Acid Stat Lab 10/21/19 02:20 Completed [place] Screen Stat Lab 10/21/19 01:51 Completed UA W/RFX UR CULTURE Stat Lab 10/21/19 03:17 Completed Medication Summary Generic Name Dose Route Start Last Admin Trade Name Kay PRN Reason Stop Dose Admin Sodium Chloride 1,000 mls @ 999 mls/hr 10/21/19 04:06 Sodium Chloride 0.9% 1000 Ml IV 10/21/19 05:06 .Q1H1M STA Discontinued Medications Generic Name Dose Route Start Last Admin Trade Name Kay PRN Reason Stop Dose Admin Famotidine 20 mg 10/21/19 01:41 10/21/19 01:49 Pepcid 20 Mg Vial IV 10/21/19 01:42 20 mg STAT ONE Administration Famotidine Confirm 10/21/19 01:46 Pepcid 20 Mg Vial Administered 10/21/19 01:47 Dose 20 mg IV .STK-MED ONE Sodium Chloride 1,000 mls @ 999 mls/hr 10/21/19 01:41 10/21/19 01:49 Sodium Chloride 0.9% 1000 Ml IV 10/21/19 02:41 999 mls/hr .Q1H1M STA Administration Sodium Chloride Confirm 10/21/19 01:46 Sodium Chloride 0.9% 1000 Ml Administered 10/21/19 01:47 Dose 1,000 mls @ ud .ROUTE .STK-MED ONE Ondansetron HCl 4 mg 10/21/19 01:41 10/21/19 01:49 Zofran 4 Mg/2 Ml Vial IV 10/21/19 01:42 4 mg STAT ONE Administration Ondansetron HCl Confirm 10/21/19 01:46 Zofran 4 Mg/2 Ml Vial Administered 10/21/19 01:47 Dose 4 mg .ROUTE .STK-MED ONE Lab/Rad Data: Laboratory Result Diagrams 10/21/19 01:51 10/21/19 01:51 Laboratory Results 10/21/19 10/21/19 10/21/19 Range/Units 03:17 02:20 01:51 WBC (4.0-10.5) K/mm3 RBC (4.1-5.4) M/mm3 Hgb (12.0-16.0) gm/dl Hct (35-47) % MCV (78-100) fl MCH (26-32) pg MCHC (32-36) g/dl RDW (11.5-14.0) % Plt Count (150-450) K/mm3 MPV (6-9.5) fl Gran % (36.0-66.0) % Eos # (Auto) (0-0.5) Absolute Lymphs (auto) (1.0-4.6) Absolute Monos (auto) (0.0-1.3) Lymphocytes % (24.0-44.0) % Monocytes % (0.0-12.0) % Eosinophils % (0.00-5.0) % Basophils % (0.0-0.4) % Absolute Granulocytes (1.4-6.9) Basophils # (0-0.4) Sodium (137-145) mmol/L Potassium (3.5-5.1) mmol/L Chloride (98-107) mmol/L Carbon Dioxide (22-30) mmol/L Anion Gap (5-15) MEQ/L BUN (7-17) mg/dL Creatinine (0.52-1.04) mg/dL Estimated GFR ML/MIN Glucose (74-106) mg/dL Lactic Acid 1.8 (0.4-2.0) Calcium (8.4-10.2) mg/dL Total Bilirubin (0.2-1.3) mg/dL AST (14-36) U/L ALT (0-35) U/L Alkaline Phosphatase (38-126) U/L Serum Total Protein (6.3-8.2) g/dL Albumin (3.5-5.0) g/dL Amylase (30-110) U/L Lipase (23-300) U/L Urine Color YELLOW (YELLOW) Urine Appearance SLIGHTLY CLOUDY (CLEAR) Urine pH 6.0 (5-6) Ur Specific [place] 1.023 (1.005-1.025) Urine Protein NEGATIVE (Negative) Urine Ketones TRACE (NEGATIVE) Urine Blood NEGATIVE (0-5) Foster/ul Urine Nitrite NEGATIVE (NEGATIVE) Urine Bilirubin NEGATIVE (NEGATIVE) Urine Urobilinogen 4 (0-1) mg/dL Ur Leukocyte Esterase SMALL (NEGATIVE) Urine WBC (Auto) 6-10 (0-5) /HPF Urine RBC (Auto) 3-5 (0-2) /HPF U Epithel Cells (Auto) RARE (FEW) /HPF Urine Bacteria (Auto) NONE (NEGATIVE) /HPF Urine Mucus (Auto) SLIGHT (NEGATIVE) /HPF Urine Culture Reflexed YES (NO) Urine Glucose NEGATIVE (NEGATIVE) mg/dL Monoscreen (Negative) Influenza Type A Ag NEGATIVE (NEGATIVE) Influenza Type B Ag NEGATIVE (NEGATIVE) RSV (PCR) NEGATIVE (Negative) 10/21/19 10/21/19 10/21/19 Range/Units 01:51 01:51 01:51 WBC 10.4 (4.0-10.5) K/mm3 RBC 4.46 (4.1-5.4) M/mm3 Hgb 13.8 (12.0-16.0) gm/dl Hct 41.0 (35-47) % MCV 91.9 (78-100) fl MCH 30.9 (26-32) pg MCHC 33.7 (32-36) g/dl RDW 13.0 (11.5-14.0) % Plt Count 266 (150-450) K/mm3 MPV 10.9 H (6-9.5) fl Gran % 78.1 H (36.0-66.0) % Eos # (Auto) 0.13 (0-0.5) Absolute Lymphs (auto) 1.44 (1.0-4.6) Absolute Monos (auto) 0.65 (0.0-1.3) Lymphocytes % 13.9 L (24.0-44.0) % Monocytes % 6.3 (0.0-12.0) % Eosinophils % 1.3 (0.00-5.0) % Basophils % 0.4 (0.0-0.4) % Absolute Granulocytes 8.13 H (1.4-6.9) Basophils # 0.04 (0-0.4) Sodium 143 (137-145) mmol/L Potassium 3.7 (3.5-5.1) mmol/L Chloride 105 (98-107) mmol/L Carbon Dioxide 28 (22-30) mmol/L Anion Gap 13.9 (5-15) MEQ/L BUN 14 (7-17) mg/dL Creatinine 0.71 (0.52-1.04) mg/dL Estimated GFR > 60.0 ML/MIN Glucose 123 H (74-106) mg/dL Lactic Acid (0.4-2.0) Calcium 9.6 (8.4-10.2) mg/dL Total Bilirubin 0.50 (0.2-1.3) mg/dL AST 27 (14-36) U/L ALT 35 (0-35) U/L Alkaline Phosphatase 116 (38-126) U/L Serum Total Protein 8.2 (6.3-8.2) g/dL Albumin 4.5 (3.5-5.0) g/dL Amylase 70 (30-110) U/L Lipase 50 (23-300) U/L Urine Color (YELLOW) Urine Appearance (CLEAR) Urine pH (5-6) Ur Specific [place] (1.005-1.025) Urine Protein (Negative) Urine Ketones (NEGATIVE) Urine Blood (0-5) Foster/ul Urine Nitrite (NEGATIVE) Urine Bilirubin (NEGATIVE) Urine Urobilinogen (0-1) mg/dL Ur Leukocyte Esterase (NEGATIVE) Urine WBC (Auto) (0-5) /HPF Urine RBC (Auto) (0-2) /HPF U Epithel Cells (Auto) (FEW) /HPF Urine Bacteria (Auto) (NEGATIVE) /HPF Urine Mucus (Auto) (NEGATIVE) /HPF Urine Culture Reflexed (NO) Urine Glucose (NEGATIVE) mg/dL Monoscreen NEGATIVE (Negative) Influenza Type A Ag (NEGATIVE) Influenza Type B Ag (NEGATIVE) RSV (PCR) (Negative) - Progress Progress: improved, re-examined Progress Note: 10/21/19 04:20 pt states she can take tylenol and ibuprofen for pain. she states she has never had macrodantin before. Counseled pt/family regarding: lab results, diagnosis, need for follow-up - Departure Departure Disposition: Home Clinical Impression: Vomiting, UTI (urinary tract infection), Mild dehydration Condition: Stable Critical Care Time: No Referrals: SHAWNEE RODGERS [Primary Care Provider] - Additional Instructions: drink plenty of fluids. tylenol and ibuprofen for pain. follow up with primary doctor for worsening symptoms Prescriptions: Nitrofurantoin Macrocrystal [Macrodantin] 100 mg PO Q6H #20 capsule
[2019-10-21] MEDS ORDERED: Pepcid 20 MG VIAL IV ONE ×2 (01:41→01:46)
[2019-10-21] MEDS ORDERED: Sodium Chloride 0.9% 1000 ML 1,000 ML IV STA ×2 (01:41→04:06)
[2019-10-21] MEDS ORDERED: Zofran 4 MG/2 ML VIAL IV ONE ×2 (01:41→04:51)
[2019-10-21] MEDS ORDERED: Zofran 4 MG/2 ML VIAL ONE ×2 (01:46→04:56)
[2019-10-21] MEDS ORDERED: Sodium Chloride 0.9% 1000 ML 1,000 ML ONE ×2 (01:46→04:56)
[2019-10-21 01:54] LABS: Absolute Neutrophil Ct (ANC) 8.13 (1.4-6.9); BASOPHIL % 0.4 % (0.0-0.4); Basophil (Absolute #) 0.04 (0-0.4); Eosinophil % 1.3 % (0.00-5.0); Eosinophil (Absolute #) 0.13 (0-0.5); Hemoglobin 13.8 gm/dl (12.0-16.0); Lymphocyte (Absolute #) 1.44 (1.0-4.6); Lymphocytes % 13.9 % (24.0-44.0); Mean Cell Volume 91.9 fl (78-100); Mean Corpuscular Hemoglobin 30.9 pg (26-32); Mean Corpuscular Hgb Concent. 33.7 g/dl (32-36); Mean Platelet Volume 10.9 fl (6-9.5); Monocyte (Absolute #) 0.65 (0.0-1.3); Monocytes % 6.3 % (0.0-12.0); Neutrophil % 78.1 % (36.0-66.0); Platelet Count 266 K/mm3 (150-450); Red Blood Count 4.46 M/mm3 (4.1-5.4); White Blood Count 10.4 K/mm3 (4.0-10.5)
[2019-10-21 02:05] LABS: ALBUMIN 4.5 g/dL (3.5-5.0); ALKALINE PHOSPHATASE 116 U/L (38-126); AMYLASE 70 U/L (30-110); ANION GAP 13.9 MEQ/L (5-15); BLOOD UREA NITROGEN 14 mg/dL (7-17); CHLORIDE 105 mmol/L (98-107); Calcium 9.6 mg/dL (8.4-10.2); Carbon Dioxide 28 mmol/L (22-30); Creatinine 1 0.71 mg/dL (0.52-1.04); Glucose 123 mg/dL (74-106); LIPASE 50 U/L (23-300); Potassium 3.7 mmol/L (3.5-5.1); SGOT/AST 27 U/L (14-36); SGPT/ALT 35 U/L (0-35); SODIUM 143 mmol/L (137-145); Total Protein 8.2 g/dL (6.3-8.2)
[2019-10-21 02:26] LABS: INFLUENZA A NEGATIVE (NEGATIVE); INFLUENZA B NEGATIVE (NEGATIVE); RESPIRATORY SYNCTIAL VIRUS NEGATIVE (Negative)
[2019-10-21 03:41] LABS: Appearance SLIGHTLY CLOUDY (CLEAR); Bilirubin NEGATIVE (NEGATIVE); Blood NEGATIVE Ery/ul (0-5); Epithelial Cells RARE /HPF (FEW); Glucose NEGATIVE (NEGATIVE); Ketones TRACE (NEGATIVE); Leukocyte Esterase SMALL (NEGATIVE); Mucus SLIGHT /HPF (NEGATIVE); Nitrite NEGATIVE (NEGATIVE); Protein,Urine Dip NEGATIVE (Negative); Specific Gravity 1.023 (1.005-1.025); Urobilinogen 4 mg/dL (0-1)
[2019-10-21] MEDS ORDERED: TYLENOL 325 MG PO STA (04:26)
[2019-10-21] MEDS ORDERED: MOTRIN 400 MG PO ONE (04:29)
[2019-10-21] MEDS ORDERED: Macrobid 100MG Capsule PO ONE (04:30)
[2019-10-21] MEDS ORDERED: MOTRIN 400 MG ONE (04:56)
[2019-10-21] MEDS ORDERED: TYLENOL 325 MG ONE (04:56)
[2019-10-21] MEDS ORDERED: Macrobid 100MG Capsule ONE (04:56)
[2019-10-21 06:11] VITALS: BP 126/56; PULSE 71; O2SAT 96
== END 2019-10-21 06:24 | disposition home or self-care (01) ==
LOC: ED 01:04
DX: R11.10 Vomiting, unspecified (principal); N39.0 Urinary tract infection, site not specified; E86.0 Dehydration; I10 Essential (primary) hypertension; I25.10 Atherosclerotic heart disease of native coronary artery without angina pectoris
CPT/HCPCS: 36000; 36415; 80053; 81001; 82150; 83605; 83690; 85025; 86308; 87086; 87631; 96374; 96375; 99284; J2405; A9270-GY

== ENCOUNTER 2020-05-25 00:19 | Emergency (ER) | payer OTHER ==
--- NOTE | 2020-05-25 00:53 | ERPHSYRPT ---
- History of Present Illness Time Seen by Provider: 05/25/20 00:35 Source: patient, EMS Exam Limitations: no limitations Physician History: This is a 49-year-old obese white female who has history of hypertension, angina, diabetes type 2, hypothyroidism, anxiety, bipolar disorder and depression as well as morbid obesity. She began having some dizziness approximately 13 hours ago. Symptoms have worsened throughout the day and evening. She had episode of vomiting. She denies head injury. She does not have chest pain she is not short of breath she has no abdominal pain she has no diarrhea. She has no fever. Timing/Duration: hour(s) (13), constant, worse Severity: mild Deficits: off balance Baseline/Normal Cognition: alert oriented x 3 Current Cognition: alert oriented x 3 Baseline Gait: walks w/o assistance Associated Symptoms: nausea, vomiting, No confusion, No seizures, No slurred speech, No vision changes, No chest pain Allergies/Adverse Reactions: meperidine Allergy (Severe, Verified 05/25/20 00:24) hydromorphone HCl [From Dilaudid] Allergy (Intermediate, Verified 05/25/20 00:24) ketorolac tromethamine [From Toradol] Allergy (Intermediate, Verified 05/25/20 00:24) naproxen Allergy (Intermediate, Verified 05/25/20 00:24) nitroglycerin [From Nitro-Bid] Allergy (Intermediate, Verified 05/25/20:24) promethazine HCl [From Phenergan] Allergy (Intermediate, Verified 05/25/20:24) propoxyphene napsylate [From Darvocet-N 100] Allergy (Intermediate, Verified 05/25/20:24) tramadol HCl [From Ultram] Allergy (Intermediate, Verified 05/25/20:24) cefaclor [From Ceclor] Allergy (Mild, Verified 05/25/20:24) ampicillin [Ampicillin] Allergy (Unknown, Verified 05/25/20:24) Cephalosporins Allergy (Unknown, Verified 05/25/20:24) ketorolac Allergy (Unknown, Verified 05/25/20:24) levofloxacin [Levofloxacin] Allergy (Unknown, Verified 05/25/20:24) morphine Allergy (Unknown, Verified 05/25/20:24) niacin [Niacin] Allergy (Unknown, Verified 05/25/20 00:24) Opioids - Morphine Analogues [Opioids-Morphine & Related] Allergy (Unknown, Verified 05/25/20 00:24) Opioids-Meperidine and Related [Opioids-Meperidine & Related] Allergy (Unknown, Verified 05/25/20 00:24) Penicillins Allergy (Unknown, Verified 05/25/20 00:24) propoxyphene Allergy (Unknown, Verified 05/25/20 00:24) simvastatin Allergy (Unknown, Verified 05/25/20 00:24) tramadol Allergy (Unknown, Verified 05/25/20 00:24) Sulfa (Sulfonamide Antibiotics) Adverse Reaction (Intermediate, Verified 05/25/20 00:24) bees Allergy (Severe, Uncoded 05/25/20 00:24) Home Medications: Aripiprazole [Abilify] 10 mg PO DAILY 09/06/14 [History] Aspirin 81 mg PO DAILY 09/06/14 [History] Metoprolol Tartrate 25 mg [Lopressor 25MG Tab] 25 mg DAILY 01/02/17 [History] Albuterol Sulfate [Ventolin] 5 mg IH QIDPRN PRN 02/26/18 [History] Nitroglycerin [Nitrostat] 0.4 mg SL Q5MIN PRN MR X 3 PRN 02/26/18 [History] Escitalopram Oxalate 1 tab PO DAILY 05/25/20 [History] PANTOPRAZOLE 40 mg Tablet [Protonix 40MG Tablet] 1 tab PO DAILY 05/25/20 [History] Hx Tetanus, Diphtheria Vaccination/Date Given: Yes Hx Influenza Vaccination/Date Given: Yes Hx Pneumococcal Vaccination/Date Given: No Travel Risk - International Travel Have you traveled outside of the country in past 3 weeks: No - Coronavirus Screening Are you exhibiting any of the following symptoms?: No Close contact with a COVID-19 positive Pt in past 14-21 Days: No - Review of Systems Constitutional: No Symptoms Eyes: No Symptoms Ears, Nose, & Throat: No Symptoms Respiratory: No Symptoms Cardiac: No Symptoms Abdominal/Gastrointestinal: Nausea, Vomiting, No Abdominal Pain, No Diarrhea Genitourinary Symptoms: No Symptoms Musculoskeletal: No Symptoms Skin: No Symptoms Neurological: Dizziness, No Headache Psychological: No Symptoms Endocrine: No Symptoms Hematologic/Lymphatic: No Symptoms Immunological/Allergic: No Symptoms All Other Systems: Reviewed and Negative - Past Medical History Pertinent Past Medical History: Yes Neurological History: Peripheral Neuropathy ENT History: Cataracts Cardiac History: Angina, Arrhythmia, Hypertension, Myocardial Infarction (ND) Respiratory History: Asthma Endocrine Medical History: Diabetes Type II, Hypothyroidism, Liver Disease Musculoskeletal History: Fractures, Osteoarthritis GI Medical History: GERD, Gallbladder Disease History: Other Psycho-Social History: Anxiety, Bipolar, Depression Female Reproductive Disorders: Endometriosis, Other Other Medical History: Elbow fx in 4th grade - Past Surgical History Past Surgical History: Yes Neuro Surgical History: No Pertinent History Cardiac: Cardiac Catheterization Respiratory: No Pertinent History Gastrointestinal: Cholecystectomy, Exploratory Laparoscopy, Hernia Repair Genitourinary: No Pertinent History Musculoskeletal: No Pertinent History Female Surgical History: Section, Hysterectomy Other Surgical History: hernia repair x 2 , x2 - Social History Smoking Status: Never smoker Exposure to second hand smoke: No Drug Use: none Patient Lives Alone: No - Nursing Vital Signs Nursing Vital Signs: Initial Vital Signs Temperature 98.1 F 05/25/20 00:19 Pulse Rate 56 L 05/25/20 00:19 Respiratory Rate 18 05/25/20 00:19 Blood Pressure 111/71 05/25/20 00:19 O2 Sat by Pulse Oximetry 96 05/25/20 00:19 - [place] Coma Scale Best Eye Response ([place]): (4) open spontaneously Best Verbal Response ([place]): (5) oriented Best Motor Response ([place]): (6) obeys commands Tatiana Total: 15 - Physical Exam General Appearance: no apparent distress, alert, anxiety, obese Eye Exam: bilateral eye: normal inspection, PERRL, EOMI Ears, Nose, Throat Exam: normal ENT inspection, moist mucous membranes Neck Exam: normal inspection, non-tender, supple, full range of motion Respiratory: normal breath sounds, lungs clear, airway intact, No chest tenderness, No respiratory distress Cardiovascular: regular rate/rhythm, normal heart sounds, normal peripheral pulses Gastrointestinal: soft, normal bowel sounds, No tenderness Pelvic Exam: not done Rectal Exam: not done Back Exam: normal inspection, normal range of motion, No CVA tenderness, No vertebral tenderness Extremity Exam: normal inspection, normal range of motion, pelvis stable Mental Status: alert, oriented x 3, cooperative hot patcher Exam: normal hearing, normal speech, PERRL, tongue midline Coordination/Gait: normal finger to nose, normal gait, normal cerebellar function Motor/Sensory: no motor deficit, no sensory deficit, no pronator drift Skin Exam: normal color, warm, dry SpO2 Interpretation: normal O2 Delivery: Room Air - Course Nursing assessment & vital signs reviewed: Yes EKG Interpreted by Me: RATE (54), Sinus Rhythm, NORMAL AXIS, NORMAL INTERVALS, NORMAL QRS, Other (No acute ischemic changes on current EKG. No changes from the comparison EKG dated 06/27/2019) Ordered Tests: Active Orders 24 hr Category Date Time Status Manager [employer] STAT Care 05/25/20 00:56 Active Clean Catch Urine Specimen STAT Care 05/25/20 00:55 Active EKG-ER Only STAT Care 05/25/20 00:55 Active IV Insertion STAT Care 05/25/20 00:55 Active HEAD WITHOUT CONTRAST [CT] Stat Exams 05/25/20 00:56 Taken CBC W DIFF Stat Lab 05/25/20 01:10 Completed CMP Stat Lab 05/25/20 01:10 Completed ETHYL ALCOHOL Stat Lab 05/25/20 01:10 Completed TROPONIN Q3H Lab 05/25/20 01:10 Completed TROPONIN Q3H Lab 05/25/20 04:00 Ordered TROPONIN Q3H Lab 05/25/20 07:00 Ordered TROPONIN Q3H Lab 05/25/20 10:00 Ordered TROPONIN Q3H Lab 05/25/20 13:00 Ordered UA W/RFX UR CULTURE Stat Lab 05/25/20 03:05 Completed Urine Triage Profile Stat Lab 05/25/20 03:05 Completed Medication Summary Discontinued Medications Generic Name Dose Route Start Last Admin Trade Name Freq PRN Reason Stop Dose Admin Meclizine HCl 25 mg 05/25/20 00:55 05/25/20 01:01 Antivert 25 Mg PO 05/25/20 00:56 25 mg STAT ONE Administration Meclizine HCl Confirm 05/25/20 01:00 Antivert 25 Mg Administered 05/25/20 01:01 Dose 25 mg .ROUTE .STK-MED ONE Lab/Rad Data: Laboratory Result Diagrams 05/25/20 01:10 05/25/20 01:10 Laboratory Results 05/25/20 05/25/20 05/25/20 Range/Units 03:05 03:05 01:10 WBC (4.0-10.5) K/mm3 RBC (4.1-5.4) M/mm3 Hgb (12.0-16.0) gm/dl Hct (35-47) % MCV (78-100) fl MCH (26-32) pg MCHC (32-36) g/dl RDW (11.5-14.0) % Plt Count (150-450) K/mm3 MPV (7.5-11.0) fl Gran % (36.0-66.0) % Eos # (Auto) (0-0.5) Absolute Lymphs (auto) (1.0-4.6) Absolute Monos (auto) (0.0-1.3) Lymphocytes % (24.0-44.0) % Monocytes % (0.0-12.0) % Eosinophils % (0.00-5.0) % Basophils % (0.0-0.4) % Absolute Granulocytes (1.4-6.9) Basophils # (0-0.4) Sodium (137-145) mmol/L Potassium (3.5-5.1) mmol/L Chloride (98-107) mmol/L Carbon Dioxide (22-30) mmol/L Anion Gap (5-15) MEQ/L BUN (7-17) mg/dL Creatinine (0.52-1.04) mg/dL Estimated GFR ML/MIN Glucose (74-106) mg/dL Calcium (8.4-10.2) mg/dL Total Bilirubin (0.2-1.3) mg/dL AST (14-36) U/L ALT (0-35) U/L Alkaline Phosphatase (38-126) U/L Troponin I < 0.012 (0.000-0.034) ng/mL Serum Total Protein (6.3-8.2) g/dL Albumin (3.5-5.0) g/dL Urine Color YELLOW (YELLOW) Urine Appearance SLIGHTLY CLOUDY (CLEAR) Urine pH 5.0 (5-6) Ur Specific Reader 1.021 (1.005-1.025) Urine Protein NEGATIVE (Negative) Urine Ketones NEGATIVE (NEGATIVE) Urine Blood NEGATIVE (0-5) Foster/ul Urine Nitrite NEGATIVE (NEGATIVE) Urine Bilirubin NEGATIVE (NEGATIVE) Urine Urobilinogen 2 (0-1) mg/dL Ur Leukocyte Esterase NEGATIVE (NEGATIVE) Urine WBC (Auto) 0-2 (0-5) /HPF Urine RBC (Auto) 0-2 (0-2) /HPF U Epithel Cells (Auto) RARE (FEW) /HPF Urine Bacteria (Auto) RARE (NEGATIVE) /HPF Urine Mucus (Auto) SLIGHT (NEGATIVE) /HPF Urine Culture Reflexed NO (NO) Urine Glucose NEGATIVE (NEGATIVE) mg/dL Urine Opiates Level NEGATIVE (NEGATIVE) Ur Methadone NEGATIVE (NEGATIVE) Urine Barbiturates NEGATIVE (NEGATIVE) Ur Phencyclidine (PCP) NEGATIVE (NEGATIVE) Urine Amphetamine NEGATIVE (NEGATIVE) U Benzodiazepine Level NEGATIVE (NEGATIVE) Urine Cocaine NEGATIVE (NEGATIVE) Urine Marijuana (THC) NEGATIVE (NEGATIVE) Ethyl Alcohol (0-10) mg/dL 05/25/20 05/25/20 Range/Units 01:10 01:10 WBC 8.0 (4.0-10.5) K/mm3 RBC 4.47 (4.1-5.4) M/mm3 Hgb 13.7 (12.0-16.0) gm/dl Hct 41.3 (35-47) % MCV 92.4 (78-100) fl MCH 30.6 (26-32) pg MCHC 33.2 (32-36) g/dl RDW 13.1 (11.5-14.0) % Plt Count 252 (150-450) K/mm3 MPV 10.9 (7.5-11.0) fl Gran % 79.4 H (36.0-66.0) % Eos # (Auto) 0.03 (0-0.5) Absolute Lymphs (auto) 1.14 (1.0-4.6) Absolute Monos (auto) 0.44 (0.0-1.3) Lymphocytes % 14.3 L (24.0-44.0) % Monocytes % 5.5 (0.0-12.0) % Eosinophils % 0.4 (0.00-5.0) % Basophils % 0.4 (0.0-0.4) % Absolute Granulocytes 6.33 (1.4-6.9) Basophils # 0.03 (0-0.4) Sodium 140 (137-145) mmol/L Potassium 3.9 (3.5-5.1) mmol/L Chloride 106 (98-107) mmol/L Carbon Dioxide 25 (22-30) mmol/L Anion Gap 12.1 (5-15) MEQ/L BUN 11 (7-17) mg/dL Creatinine 0.66 (0.52-1.04) mg/dL Estimated GFR > 60.0 ML/MIN Glucose 119 H (74-106) mg/dL Calcium 9.5 (8.4-10.2) mg/dL Total Bilirubin 0.50 (0.2-1.3) mg/dL AST 31 (14-36) U/L ALT 44 H (0-35) U/L Alkaline Phosphatase 107 (38-126) U/L Troponin I (0.000-0.034) ng/mL Serum Total Protein 7.1 (6.3-8.2) g/dL Albumin 4.0 (3.5-5.0) g/dL Urine Color (YELLOW) Urine Appearance (CLEAR) Urine pH (5-6) Ur Specific Reader (1.005-1.025) Urine Protein (Negative) Urine Ketones (NEGATIVE) Urine Blood (0-5) Foster/ul Urine Nitrite (NEGATIVE) Urine Bilirubin (NEGATIVE) Urine Urobilinogen (0-1) mg/dL Ur Leukocyte Esterase (NEGATIVE) Urine WBC (Auto) (0-5) /HPF Urine RBC (Auto) (0-2) /HPF U Epithel Cells (Auto) (FEW) /HPF Urine Bacteria (Auto) (NEGATIVE) /HPF Urine Mucus (Auto) (NEGATIVE) /HPF Urine Culture Reflexed (NO) Urine Glucose (NEGATIVE) mg/dL Urine Opiates Level (NEGATIVE) Ur Methadone (NEGATIVE) Urine Barbiturates (NEGATIVE) Ur Phencyclidine (PCP) (NEGATIVE) Urine Amphetamine (NEGATIVE) U Benzodiazepine Level (NEGATIVE) Urine Cocaine (NEGATIVE) Urine Marijuana (THC) (NEGATIVE) Ethyl Alcohol < 10 (0-10) mg/dL - Progress Progress: improved, re-examined Progress Note: 05/25/20 02:41 CAT scan of the head shows no acute intracranial abnormality Counseled pt/family regarding: lab results, diagnosis, need for follow-up, rad results - Departure Departure Disposition: Home Clinical Impression: Dizziness Condition: Stable Critical Care Time: No Referrals: SHAWNEE RODGERS [Primary Care Provider] - Additional Instructions: Drink plenty of fluids. Call your primary care doctor later today to arrange a follow-up appointment. Take your medication as prescribed Prescriptions: Meclizine HCl 25 mg [Antivert 25 mg] 25 mg PO Q8H PRN #10 tablet PRN Reason: Dizziness
[2020-05-25] MEDS ORDERED: ANTIVERT 25 MG PO ONE (00:55)
[2020-05-25] MEDS ORDERED: ANTIVERT 25 MG ONE (01:00)
[2020-05-25 01:13] LABS: Absolute Neutrophil Ct (ANC) 6.33 (1.4-6.9); BASOPHIL % 0.4 % (0.0-0.4); Basophil (Absolute #) 0.03 (0-0.4); Eosinophil % 0.4 % (0.00-5.0); Eosinophil (Absolute #) 0.03 (0-0.5); Hematocrit 41.3 % (35-47); Hemoglobin 13.7 gm/dl (12.0-16.0); Lymphocyte (Absolute #) 1.14 (1.0-4.6); Lymphocytes % 14.3 % (24.0-44.0); Mean Cell Volume 92.4 fl (78-100); Mean Corpuscular Hemoglobin 30.6 pg (26-32); Mean Corpuscular Hgb Concent. 33.2 g/dl (32-36); Mean Platelet Volume 10.9 fl (7.5-11.0); Monocyte (Absolute #) 0.44 (0.0-1.3); Monocytes % 5.5 % (0.0-12.0); Neutrophil % 79.4 % (36.0-66.0); Platelet Count 252 K/mm3 (150-450); Red Blood Count 4.47 M/mm3 (4.1-5.4); Red Cell Distribution Width 13.1 % (11.5-14.0)
[2020-05-25 01:26] LABS: ALKALINE PHOSPHATASE 107 U/L (38-126); ANION GAP 12.1 MEQ/L (5-15); BLOOD UREA NITROGEN 11 mg/dL (7-17); CHLORIDE 106 mmol/L (98-107); Calcium 9.5 mg/dL (8.4-10.2); Carbon Dioxide 25 mmol/L (22-30); Creatinine 1 0.66 mg/dL (0.52-1.04); ETHYL ALCOHOL < 10 mg/dL (0-10); Glucose 119 mg/dL (74-106); Potassium 3.9 mmol/L (3.5-5.1); SGOT/AST 31 U/L (14-36); SGPT/ALT 44 U/L (0-35); SODIUM 140 mmol/L (137-145); Total Protein 7.1 g/dL (6.3-8.2)
[2020-05-25 03:21] LABS: Appearance SLIGHTLY CLOUDY (CLEAR); Bacteria RARE /HPF (NEGATIVE); Bilirubin NEGATIVE (NEGATIVE); Blood NEGATIVE Ery/ul (0-5); Epithelial Cells RARE /HPF (FEW); Glucose NEGATIVE (NEGATIVE); Ketones NEGATIVE (NEGATIVE); Leukocyte Esterase NEGATIVE (NEGATIVE); Mucus SLIGHT /HPF (NEGATIVE); Nitrite NEGATIVE (NEGATIVE); Protein,Urine Dip NEGATIVE (Negative); RBC 0-2 /HPF (0-2); Specific Gravity 1.021 (1.005-1.025); Urobilinogen 2 mg/dL (0-1); WBC 0-2 /HPF (0-5)
[2020-05-25 03:25] LABS: Amphetamine,Urine NEGATIVE (NEGATIVE); Barbiturate,Urine NEGATIVE (NEGATIVE); Benzodiazepine,Urine NEGATIVE (NEGATIVE); Cocaine,Urine NEGATIVE (NEGATIVE); Methadone,Urine NEGATIVE (NEGATIVE); Opiate,Urine NEGATIVE (NEGATIVE); PCP,Urine NEGATIVE (NEGATIVE); THC,Urine NEGATIVE (NEGATIVE)
[2020-05-25 06:22] VITALS: BP 106/53; PULSE 69; O2SAT 97
--- NOTE | 2020-05-25 08:44 | XRAY ---
Indication: Dizziness, nausea, vomiting, and hypertension. Multiple contiguous axial images obtained through the head without contrast. Comparison: June 27, 2019. Again normal appearing brain parenchyma, ventricles, and bony calvarium. Visualized paranasal sinuses and mastoid air cells are clear. Impression: Continued normal CT head without contrast exam. Comment: Preliminary interpretation was made by [facility]. No critical discrepancy.
== END 2020-05-25 06:37 | disposition home or self-care (01) ==
LOC: ED 00:19
DX: R42 Dizziness and giddiness (principal); I10 Essential (primary) hypertension; I20.9 Angina pectoris, unspecified; E11.9 Type 2 diabetes mellitus without complications; E03.9 Hypothyroidism, unspecified; F41.8 Other specified anxiety disorders; E66.9 Obesity, unspecified; R11.2 Nausea with vomiting, unspecified; Z79.899 Other long term (current) drug therapy; I25.2 Old myocardial infarction
CPT/HCPCS: 36000; 36415; 70450; 80053; 80307; 81001; 84484; 85025; 93005; 93041; 99284; A9270-GY; G0480

== ENCOUNTER 2021-09-14 17:22 | Emergency (ER) | payer OTHER ==
--- NOTE | 2021-09-14 17:36 | ERPHSYRPT ---
- History of Present Illness Time Seen by Provider: 09/14/21 17:36 Historian: patient Exam Limitations: no limitations Physician History: This is an obese 51-year-old white female patient of Dr. Fernando Norris and presents with no significant abdominal pain but has had nausea and vomiting intermittently for the last 3 to 4 days. Primarily every morning. She has had a cholecystectomy and a hysterectomy in the past. Patient has a history of hypertension, chronic angina, diabetes type 2, hypothyroidism, anxiety disorder, bipolar disorder as well as depression. In addition she has gastroesophageal reflux disease. Timing/Duration: day(s) (4) Activities at Onset: none Quality: other Abdominal Pain Onset Location: other (No significant abdominal pain) Pain Radiation: other (No significant abdominal pain) Severity of Pain-Max: none Severity of Pain-Current: none Modifying Factors: Improves With: vomiting Associated Symptoms: diarrhea (Started today), loss of appetite, nausea, vomiting Previous symptoms: same symptoms as today, no recent treatment Allergies/Adverse Reactions: meperidine Allergy (Severe, Verified 05/25/20 00:24) hydromorphone HCl [From Dilaudid] Allergy (Intermediate, Verified 05/25/20 00:24) ketorolac tromethamine [From Toradol] Allergy (Intermediate, Verified 05/25/20 00:24) naproxen Allergy (Intermediate, Verified 05/25/20 00:24) nitroglycerin [From Nitro-Bid] Allergy (Intermediate, Verified 05/25/20 00:24) promethazine HCl [From Phenergan] Allergy (Intermediate, Verified 05/25/20 00:24) propoxyphene napsylate [From Darvocet-N 100] Allergy (Intermediate, Verified 05/25/20 00:24) tramadol HCl [From Ultram] Allergy (Intermediate, Verified 05/25/20 00:24) cefaclor [From Ceclor] Allergy (Mild, Verified 05/25/20:24) ampicillin [Ampicillin] Allergy (Unknown, Verified 05/25/20 00:24) Cephalosporins Allergy (Unknown, Verified 05/25/20 00:24) ketorolac Allergy (Unknown, Verified 05/25/20 00:24) levofloxacin [Levofloxacin] Allergy (Unknown, Verified 05/25/20 00:24) morphine Allergy (Unknown, Verified 05/25/20 00:24) niacin [Niacin] Allergy (Unknown, Verified 05/25/20 00:24) Opioids - Morphine Analogues [Opioids-Morphine & Related] Allergy (Unknown, Verified 05/25/20 00:24) Opioids-Meperidine and Related [Opioids-Meperidine & Related] Allergy (Unknown, Verified 05/25/20 00:24) Penicillins Allergy (Unknown, Verified 05/25/20 00:24) propoxyphene Allergy (Unknown, Verified 05/25/20 00:24) simvastatin Allergy (Unknown, Verified 05/25/20 00:24) tramadol Allergy (Unknown, Verified 05/25/20 00:24) Sulfa (Sulfonamide Antibiotics) Adverse Reaction (Intermediate, Verified 05/25/20 00:24) bees Allergy (Severe, Uncoded 05/25/20 00:24) Home Medications: Aspirin 81 mg PO DAILY 09/06/14 [History] Metoprolol Tartrate 25 mg [Lopressor 25MG Tab] 25 mg DAILY 01/02/17 [History] Albuterol Sulfate [Ventolin] 5 mg IH QIDPRN PRN 02/26/18 [History] Nitroglycerin [Nitrostat] 0.4 mg SL Q5MIN PRN MR X 3 PRN 02/26/18 [History] Escitalopram Oxalate 1 tab PO DAILY 05/25/20 [History] PANTOPRAZOLE 40 mg Tablet [Protonix 40MG Tablet] 1 tab PO DAILY 05/25/20 [History] Hx Tetanus, Diphtheria Vaccination/Date Given: Yes Hx Influenza Vaccination/Date Given: Yes Hx Pneumococcal Vaccination/Date Given: No Travel Risk - International Travel Have you traveled outside of the country in past 3 weeks: No - Coronavirus Screening Are you exhibiting any of the following symptoms?: Yes Symptoms: Vomiting/Diarrhea Close contact with a COVID-19 positive Pt in past 14-21 Days: No - Review of Systems Constitutional: No Symptoms Eyes: No Symptoms Ears, Nose, & Throat: No Symptoms Respiratory: No Symptoms Cardiac: No Symptoms Abdominal/Gastrointestinal: Nausea, Vomiting, Diarrhea (Mild, few episodes today) Genitourinary Symptoms: No Symptoms Musculoskeletal: No Symptoms Skin: No Symptoms Neurological: No Symptoms Psychological: No Symptoms Endocrine: No Symptoms Hematologic/Lymphatic: No Symptoms Immunological/Allergic: No Symptoms All Other Systems: Reviewed and Negative - Past Medical History Pertinent Past Medical History: Yes Neurological History: Peripheral Neuropathy ENT History: Cataracts Cardiac History: Angina, Congestive Heart Failure, High Cholesterol, Hypertension Respiratory History: Asthma Endocrine Medical History: Diabetes Type II, Hypothyroidism Musculoskeletal History: Arthritis GI Medical History: GERD, Gallbladder Disease History: Other Psycho-Social History: Anxiety, Bipolar, Depression Female Reproductive Disorders: Endometriosis, Other Other Medical History: Elbow fx in 4th grade - Past Surgical History Past Surgical History: Yes Neuro Surgical History: No Pertinent History Cardiac: Cardiac Catheterization Respiratory: No Pertinent History Gastrointestinal: Cholecystectomy, Exploratory Laparoscopy, Hernia Repair Genitourinary: No Pertinent History Musculoskeletal: No Pertinent History Female Surgical History: Section, Hysterectomy Other Surgical History: hernia repair x 2 , x2 - Social History Smoking Status: Never smoker Exposure to second hand smoke: No Drug Use: none Patient Lives Alone: No - Nursing Vital Signs Nursing Vital Signs: Initial Vital Signs Temperature 98.3 F 09/14/21 17:35 Pulse Rate 116 H 09/14/21 17:35 Respiratory Rate 20 09/14/21 17:35 Blood Pressure 145/85 09/14/21 17:35 O2 Sat by Pulse Oximetry 97 09/14/21 17:35 Pain Scale Pain Intensity 2 - Physical Exam General Appearance: no apparent distress, alert, anxiety, obese Eye Exam: PERRL/EOMI, eyes nml inspection Ears, Nose, Throat Exam: normal ENT inspection, moist mucous membranes Neck Exam: normal inspection, non-tender, supple, full range of motion Respiratory Exam: normal breath sounds, lungs clear, airway intact, No chest tenderness, No respiratory distress Cardiovascular Exam: regular rate/rhythm, normal heart sounds, normal peripheral pulses Gastrointestinal/Abdomen Exam: soft, normal bowel sounds, No tenderness Pelvic Exam: not done Rectal Exam: not done Back Exam: normal inspection, normal range of motion, No CVA tenderness, No vertebral tenderness Extremity Exam: normal inspection, normal range of motion, pelvis stable Neurologic Exam: alert, oriented x 3, cooperative, director microbiology II-XII nml as tested, normal mood/affect, nml cerebellar function, nml station & gait, sensation nml Skin Exam: normal color, warm, dry Lymphatic Exam: No adenopathy SpO2 Interpretation: normal O2 Delivery: Room Air - Course Nursing assessment & vital signs reviewed: Yes Ordered Tests: Active Orders 24 hr Category Date Time Status AMYLASE Stat Lab 09/14/21 18:18 Completed CBC W DIFF Stat Lab 09/14/21 18:18 Completed CMP Stat Lab 09/14/21 18:18 Completed CULTURE,URINE Stat Lab 09/14/21 18:10 Received LIPASE Stat Lab 09/14/21 18:18 Completed Lactic Acid Stat Lab 09/14/21 18:36 Completed TROPONIN Q3H Lab 09/14/21 18:18 Completed TROPONIN Q3H Lab 09/14/21 22:45 Ordered UA W/RFX UR CULTURE Stat Lab 09/14/21 18:10 Completed Medication Summary Discontinued Medications Generic Name Dose Route Start Last Admin Trade Name Freq PRN Reason Stop Dose Admin Sodium Chloride 1,000 mls @ 999 mls/hr 09/14/21 18:01 09/14/21 18:18 Sodium Chloride 0.9% 1000 Ml IV 09/14/21 19:01 999 mls/hr .Q1H1M STA Administration Sodium Chloride Confirm 09/14/21 18:17 Sodium Chloride 0.9% 1000 Ml Administered 09/14/21 18:18 Dose 1,000 mls @ ud .ROUTE .STK-MED ONE Nitrofurantoin Macrocrystals 100 mg 09/14/21 20:04 09/14/21 20:16 Nitrofurantoin Macro 100 Mg Capsule PO 09/14/21 20:05 100 mg STAT ONE Administration Nitrofurantoin Macrocrystals Confirm 09/14/21 20:13 Nitrofurantoin Macro 100 Mg Capsule Administered 09/14/21 20:14 Dose 100 mg .ROUTE .STK-MED ONE Ondansetron HCl 4 mg 09/14/21 19:19 09/14/21 19:26 Ondansetron Hcl 4 Mg/2 Ml Vial IV 09/14/21 19:20 4 mg STAT ONE Administration Ondansetron HCl Confirm 09/14/21 19:22 Ondansetron Hcl 4 Mg/2 Ml Vial Administered 09/14/21 19:23 Dose 4 mg .ROUTE .STK-MED ONE Lab/Rad Data: Laboratory Result Diagrams 09/14/21 18:18 09/14/21 18:18 Laboratory Results 09/14/21 09/14/21 09/14/21 Range/Units 18:36 18:18 18:18 WBC (4.0-10.5) K/mm3 RBC (4.1-5.4) M/mm3 Hgb (12.0-16.0) gm/dl Hct (35-47) % MCV (78-100) fl MCH (26-32) pg MCHC (32-36) g/dl RDW (11.5-14.0) % Plt Count (150-450) K/mm3 MPV (7.5-11.0) fl Gran % (36.0-66.0) % Eos # (Auto) (0-0.5) Absolute Lymphs (auto) (1.0-4.6) Absolute Monos (auto) (0.0-1.3) Lymphocytes % (24.0-44.0) % Monocytes % (0.0-12.0) % Eosinophils % (0.00-5.0) % Basophils % (0.0-0.4) % Absolute Granulocytes (1.4-6.9) Basophils # (0-0.4) Sodium 137 (137-145) mmol/L Potassium 3.4 L (3.5-5.1) mmol/L Chloride 99 (98-107) mmol/L Carbon Dioxide 25 (22-30) mmol/L Anion Gap 16.8 H (5-15) MEQ/L BUN 15 (7-17) mg/dL Creatinine 1.01 (0.52-1.04) mg/dL Estimated GFR > 60.0 ML/MIN Glucose 123 H (74-106) mg/dL Lactic Acid 1.1 (0.4-2.0) Calcium 8.8 (8.4-10.2) mg/dL Total Bilirubin 0.50 (0.2-1.3) mg/dL AST 88 H (14-36) U/L ALT 87 H (0-35) U/L Alkaline Phosphatase 97 (38-126) U/L Troponin I < 0.012 (0.000-0.034) ng/mL Serum Total Protein 7.6 (6.3-8.2) g/dL Albumin 4.3 (3.5-5.0) g/dL Amylase 55 (30-110) U/L Lipase 90 (23-300) U/L Urine Color (YELLOW) Urine Appearance (CLEAR) Urine pH (5-6) Ur Specific [place] (1.005-1.025) Urine Protein (Negative) Urine Ketones (NEGATIVE) Urine Blood (0-5) Foster/ul Urine Nitrite (NEGATIVE) Urine Bilirubin (NEGATIVE) Urine Urobilinogen (0-1) mg/dL Ur Leukocyte Esterase (NEGATIVE) Urine WBC (Auto) (0-5) /HPF Urine RBC (Auto) (0-2) /HPF U Epithel Cells (Auto) (FEW) /HPF Urine Bacteria (Auto) (NEGATIVE) /HPF Amorphous Crystals (NEGATIVE) /HPF Urine Mucus (Auto) (NEGATIVE) /HPF Urine Culture Reflexed (NO) Urine Glucose (NEGATIVE) mg/dL 09/14/21 09/14/21 Range/Units 18:18 18:10 WBC 6.0 (4.0-10.5) K/mm3 RBC 4.82 (4.1-5.4) M/mm3 Hgb 14.5 (12.0-16.0) gm/dl Hct 44.7 (35-47) % MCV 92.7 (78-100) fl MCH 30.1 (26-32) pg MCHC 32.4 (32-36) g/dl RDW 13.9 (11.5-14.0) % Plt Count 200 (150-450) K/mm3 MPV 10.1 (7.5-11.0) fl Gran % 84.4 H (36.0-66.0) % Eos # (Auto) 0 (0-0.5) Absolute Lymphs (auto) 0.65 L (1.0-4.6) Absolute Monos (auto) 0.27 (0.0-1.3) Lymphocytes % 10.9 L (24.0-44.0) % Monocytes % 4.5 (0.0-12.0) % Eosinophils % 0.0 (0.00-5.0) % Basophils % 0.2 (0.0-0.4) % Absolute Granulocytes 5.05 (1.4-6.9) Basophils # 0.01 (0-0.4) Sodium (137-145) mmol/L Potassium (3.5-5.1) mmol/L Chloride (98-107) mmol/L Carbon Dioxide (22-30) mmol/L Anion Gap (5-15) MEQ/L BUN (7-17) mg/dL Creatinine (0.52-1.04) mg/dL Estimated GFR ML/MIN Glucose (74-106) mg/dL Lactic Acid (0.4-2.0) Calcium (8.4-10.2) mg/dL Total Bilirubin (0.2-1.3) mg/dL AST (14-36) U/L ALT (0-35) U/L Alkaline Phosphatase (38-126) U/L Troponin I (0.000-0.034) ng/mL Serum Total Protein (6.3-8.2) g/dL Albumin (3.5-5.0) g/dL Amylase (30-110) U/L Lipase (23-300) U/L Urine Color YELLOW (YELLOW) Urine Appearance TURBID (CLEAR) Urine pH 5.0 (5-6) Ur Specific [place] 1.026 (1.005-1.025) Urine Protein 100 (Negative) Urine Ketones SMALL (NEGATIVE) Urine Blood NEGATIVE (0-5) Foster/ul Urine Nitrite NEGATIVE (NEGATIVE) Urine Bilirubin NEGATIVE (NEGATIVE) Urine Urobilinogen 4 (0-1) mg/dL Ur Leukocyte Esterase SMALL (NEGATIVE) Urine WBC (Auto) 6-10 (0-5) /HPF Urine RBC (Auto) NONE (0-2) /HPF U Epithel Cells (Auto) RARE (FEW) /HPF Urine Bacteria (Auto) FEW (NEGATIVE) /HPF Amorphous Crystals MODERATE (NEGATIVE) /HPF Urine Mucus (Auto) MANY (NEGATIVE) /HPF Urine Culture Reflexed YES (NO) Urine Glucose NEGATIVE (NEGATIVE) mg/dL - Progress Progress: improved, re-examined Counseled pt/family regarding: lab results, diagnosis, need for follow-up - Departure Departure Disposition: Home Clinical Impression: UTI (urinary tract infection), Vomiting Condition: Stable Critical Care Time: No Referrals: ALYSON NORRIS [ACTIVE STAFF] - Follow up/PCP as directed Additional Instructions: Drink plenty of fluids. Take your antibiotics as prescribed. Take your other medications as prescribed. Follow-up with your primary care physician for furth er management. Prescriptions: Ondansetron ODT 4 MG [Zofran Odt 4 mg] 4 mg PO Q6H PRN PRN #10 tablet PRN Reason: Vomiting Nitrofurantoin Monohyd/M-Cryst [Macrobid 100 mg Capsule] 100 mg PO BID 7 Days #14
[2021-09-14] MEDS ORDERED: Sodium Chloride 0.9% 1000 ML 1,000 ML IV STA (18:01)
[2021-09-14] MEDS ORDERED: Sodium Chloride 0.9% 1000 ML 1,000 ML ONE (18:17)
[2021-09-14 18:21] LABS: Absolute Neutrophil Ct (ANC) 5.05 (1.4-6.9); BASOPHIL % 0.2 % (0.0-0.4); Basophil (Absolute #) 0.01 (0-0.4); Eosinophil (Absolute #) 0 (0-0.5); Hematocrit 44.7 % (35-47); Hemoglobin 14.5 gm/dl (12.0-16.0); Lymphocyte (Absolute #) 0.65 (1.0-4.6); Lymphocytes % 10.9 % (24.0-44.0); Mean Cell Volume 92.7 fl (78-100); Mean Corpuscular Hemoglobin 30.1 pg (26-32); Mean Corpuscular Hgb Concent. 32.4 g/dl (32-36); Mean Platelet Volume 10.1 fl (7.5-11.0); Monocyte (Absolute #) 0.27 (0.0-1.3); Monocytes % 4.5 % (0.0-12.0); Neutrophil % 84.4 % (36.0-66.0); Platelet Count 200 K/mm3 (150-450); Red Blood Count 4.82 M/mm3 (4.1-5.4); Red Cell Distribution Width 13.9 % (11.5-14.0)
[2021-09-14 18:37] LABS: Amourphous Crystal MODERATE /HPF (NEGATIVE); Appearance TURBID (CLEAR); Bacteria FEW /HPF (NEGATIVE); Bilirubin NEGATIVE (NEGATIVE); Blood NEGATIVE Ery/ul (0-5); Epithelial Cells RARE /HPF (FEW); Glucose NEGATIVE (NEGATIVE); Ketones SMALL (NEGATIVE); Leukocyte Esterase SMALL (NEGATIVE); Mucus MANY /HPF (NEGATIVE); Nitrite NEGATIVE (NEGATIVE); Protein,Urine Dip 100 (Negative); Specific Gravity 1.026 (1.005-1.025); Urobilinogen 4 mg/dL (0-1)
[2021-09-14 18:41] LABS: ALBUMIN 4.3 g/dL (3.5-5.0); ALKALINE PHOSPHATASE 97 U/L (38-126); AMYLASE 55 U/L (30-110); ANION GAP 16.8 MEQ/L (5-15); BLOOD UREA NITROGEN 15 mg/dL (7-17); CHLORIDE 99 mmol/L (98-107); Calcium 8.8 mg/dL (8.4-10.2); Carbon Dioxide 25 mmol/L (22-30); Creatinine 1 1.01 mg/dL (0.52-1.04); EST GLOMERULAR FILTRATION RATE > 60.0 ML/MIN; Glucose 123 mg/dL (74-106); LIPASE 90 U/L (23-300); Potassium 3.4 mmol/L (3.5-5.1); SGOT/AST 88 U/L (14-36); SGPT/ALT 87 U/L (0-35); SODIUM 137 mmol/L (137-145); Total Protein 7.6 g/dL (6.3-8.2)
[2021-09-14] MEDS ORDERED: Zofran 4 MG/2 ML VIAL IV ONE (19:19)
[2021-09-14] MEDS ORDERED: Zofran 4 MG/2 ML VIAL ONE (19:22)
[2021-09-14] MEDS ORDERED: Macrobid 100MG Capsule PO ONE (20:04)
[2021-09-14 20:11] VITALS: BP 168/95
[2021-09-14] MEDS ORDERED: Macrobid 100MG Capsule ONE (20:13)
[2021-09-14 20:53] VITALS: PULSE 108; O2SAT 98
== END 2021-09-14 20:53 | disposition home or self-care (01) ==
LOC: ED 17:22
DX: N39.0 Urinary tract infection, site not specified (principal); R11.10 Vomiting, unspecified
CPT/HCPCS: 36415; 80053; 81001; 82150; 83605; 83690; 84484; 85025; 87086; 96374; 96375; 99284; J2405; A9270-GY